=== PATIENT | male | born 1965 | race Caucasian/White ===

== ENCOUNTER 2021-06-10 21:06 | Emergency (ER) | payer OTHER ==
--- NOTE | 2021-06-10 22:17 | EDM.PDOC ---
ED HPI GENERAL MEDICAL PROBLEM - General Chief Complaint: Upper Extremity Injury/Pain Stated Complaint: HURT RIGHT WRIST Time Seen by Provider: 06/10/21 21:47 Source of Information: Reports: Patient, RN Notes Reviewed History Limitations: Reports: No Limitations - History of Present Illness INITIAL COMMENTS - FREE TEXT/NARRATIVE: Patient is a 55-year-old male who presents to the ER for the evaluation of his right wrist injury. States that he tripped and fell over something today, and ended up catching himself with his outstretched right wrist. Had pain into his right wrist after this, and is having issues moving it in all range of motion. Did not take any sort of pain medication prior to coming to the ER. He is not having any sort of numbness or tingling into the fingers. Patient states he has not had prior issues with this wrist. Patient denies any other sick-like symptoms, fever/chills, cough/shortness of breath, nausea/vomiting/diarrhea. Right Wrist Pain Score (Numeric/FACES): 4 - Related Data Allergies Allergy/AdvReac Type Severity Reaction Status Date / Time Unable to Assess Allergy Unverified 06/10/21 21:41 Home Meds: Home Meds lisinopriL [Lisinopril] 30 mg PO DAILY 06/10/21 [History] Past Medical History Cardiovascular History: Reports: Hypertension Musculoskeletal History: Reports: Fracture Endocrine/Metabolic History: Reports: Obesity/BMI 30+ - Past Surgical History GI Surgical History: Reports: Other (See Below) Other GI Surgeries/Procedures: Meshing that holds stomach together, multiple abdominal surgery. Musculoskeletal Surgical History: Reports: Knee Replacement, Other (See Below) Other Musculoskeletal Surgeries/Procedures:: Ankle Surgery, Femur Surgery Social & Family History - Tobacco Use Tobacco Use Status *Q: Never Tobacco User - Caffeine Use Caffeine Use: Reports: Tea - Recreational Drug Use Recreational Drug Use: No Review of Systems - Review of Systems Review Of Systems: Comprehensive ROS is negative, except as noted in HPI. ED EXAM, GENERAL - Physical Exam Exam: See Below Exam Limited By: No Limitations General Appearance: Alert, WD/WN, No Apparent Distress Respiratory/Chest: No Respiratory Distress, Lungs Clear, Normal Breath Sounds, No Accessory Muscle Use, Chest Non-Tender Cardiovascular: Normal Peripheral Pulses, Regular Rate, Rhythm, No Edema Peripheral Pulses: 2+: Radial (L), Radial (R) Extremities: Normal Inspection, Normal Capillary Refill, Limited Range of Motion (of right wrist d/t pain) Neurological: Alert, Oriented, Normal Cognition, No Motor/Sensory Deficits Psychiatric: Normal Affect, Normal Mood Skin Exam: Warm, Dry, Intact, Normal Color, No Rash Course - Vital Signs Last Recorded V/S: Last Vital Signs Temp 96.9 F 06/10/21 21:36 Pulse 86 06/10/21 21:36 Resp 16 06/10/21 21:36 BP 169/84 H 06/10/21 21:36 Pulse Ox 95 06/10/21 21:36 - Orders/Labs/Meds Orders: Active Orders 24 hr Category Date Time Status Wrist Comp Min 3V Rt [CR] Stat Exams 06/10/21 21:40 Taken - Re-Assessments/Exams Free Text/Narrative Re-Assessment/Exam: 06/10/21 22:18 Patient presents to the ER for the evaluation of his right wrist pain, there is some mild amount of swelling, x-rays of the area demonstrated no acute fracture or other bony abnormalities that are apparent to myself or Dr. Barahona for tonight's purposes. We will discharge patient home with general recommendations. Departure - Departure Time of Disposition: 22:15 Disposition: Home, Self-Care 01 Condition: Good Clinical Impression: Sprain of wrist, right Qualifiers: Encounter type: initial encounter Qualified Code(s): S63.501A - Unspecified sprain of right wrist, initial encounter - Discharge Information *PRESCRIPTION DRUG MONITORING PROGRAM REVIEWED*: No *COPY OF PRESCRIPTION DRUG MONITORING REPORT IN PATIENT SABI: No Instructions: Wrist Sprain, Adult Referrals: PCP,Not In Area [Primary Care Provider] - Forms: ED Department Discharge Additional Instructions: You have been evaluated in the ED for your right wrist injury. Your x-ray demonstrated no acute fracture or other bony abnormality. Please use ice as tolerated to the affected area. Please try to elevate the affected area to relieve swelling. If you are continue to find the wrist bothersome, you may obtain a wrist splint at any pharmacy or place like [facility] for stabilization of the joint, and to help provide further pain management. You may take Tylenol 500 mg or ibuprofen 600mg q6 hrs for pain relief. Please do so until you have a tolerable level of pain with activity. Do not exceed 4000mg Tylenol or 3200mg ibuprofen in a 24 hour time period. Please return to ED if your symptoms should change or worsen. Sepsis Event Note (ED) - Evaluation Sepsis Screening Result: No Definite Risk - Focused Exam Vital Signs: Vital Signs Temp Pulse Resp BP Pulse Ox 06/10/21 21:36 96.9 F 86 16 169/84 H 95 - My Orders Last 24 Hours: My Active Orders 06/10/21 21:40 Wrist Comp Min 3V Rt [CR] Stat - Assessment/Plan Last 24 Hours: My Active Orders 06/10/21 21:40 Wrist Comp Min 3V Rt [CR] Stat
--- NOTE | 2021-06-11 06:43 | CR ---
Right wrist: 4 views of the right wrist were obtained. Comparison: No prior wrist exam is available. Slight joint space narrowing is noted between the radius and navicular bone. Minimal joint space narrowing is seen within the CMC joint of the thumb. Minimal joint space narrowing is noted at the distal navicular bone. Joint space narrowing is partially seen within the MCP joints which is most prominent within the third digit. No acute fracture, dislocation or other bony abnormality is appreciated. Impression: 1. Degenerative change as noted above. 2. No acute osseous abnormality is appreciated on right wrist exam. Diagnostic code #2
== END 2021-06-10 22:32 | disposition home or self-care (01) ==
LOC: JD.ED 21:06
DX: S63.501A Unspecified sprain of right wrist, initial encounter (principal); I10 Essential (primary) hypertension; E66.9 Obesity, unspecified; Z68.41 Body mass index [BMI] 40.0-44.9, adult; Z79.899 Other long term (current) drug therapy; W01.0XXA Fall on same level from slipping, tripping and stumbling without subsequent striking against object, initial encounter
CPT/HCPCS: 73110-26-RT; 73110-RT; 99283; 99283-25